=== PATIENT | male | born 1965 ===

== ENCOUNTER 2018-11-12 18:51 | Inpatient (IN) | payer OTHER ==
[~2018-11-12] VITALS: Ht 185.4 cm; Wt 87.0 kg
--- NOTE | 2018-11-12 17:15 | NUR ---
PATIENT ARRIVED TO ROOM 324 VIA CART BY EMS. PATIENT ORIENTED TO ROOM. CALL LIGHT WITHIN REACH. DR. MATUTE AWARE OF PATIENT'S ARRIVAL TO ROOM 324.
--- NOTE | 2018-11-12 19:30 | NUR ---
REPORT GIVEN TO REGINO JAIMES.
[2018-11-12 20:14] VITALS: BP 129/77; PULSE 69; TEMP 97.4
[2018-11-12] MEDS ORDERED: PROTONIX 40MG T40 MG PO (20:47)
[2018-11-12] MEDS ORDERED: SYNTHROID0.088 MG/T PO (20:48)
[2018-11-12] MEDS ORDERED: MASON NATURAL2000 IU PO (20:49)
[2018-11-12] MEDS ORDERED: LIPITOR 40MG TA40 MG PO (20:50)
[2018-11-12] MEDS ORDERED: ZANTAC 150MG T150 MG PO (20:51)
[2018-11-12] MEDS ORDERED: PERCOCET 325 MG1 TA2 PO (20:52)
[2018-11-12] MEDS ORDERED: COLACE 100100 MG/CAP PO (20:54)
[2018-11-12] MEDS ORDERED: MIRALAX PA17 GM/Dose PO (20:54)
--- NOTE | 2018-11-12 20:59 | NUR ---
PT IN BED WITH HOB ELEVATED TO 30 DEGREE ANGLE. DENIES PAIN OR DISCOMFORT AT THIS TIME. PT AWARE THAT HE WILL BE NPO AFTER MIDNIGHT. PT HAS IV FLUIDS RUNNING. NO NEEDS AT THIS TIME, CALL LIGHT WITHIN REACH.
--- NOTE | 2018-11-12 21:09 | NUR ---
Pt. laying in bed at this time. Pt. is A&OX3, assessment complete. Addmission assessment complete at this time. Pt. reports pain at a 3 on pain scale. Pt. denies further needs, call light within reach.
[2018-11-12 23:54] VITALS: BP 105/64; PULSE 64; TEMP 98.9
[2018-11-13] VITALS (17 sets, daily range): BP systolic 91–153; BP diastolic 55–81; PULSE 51–71; TEMP 97.4–99.2
--- NOTE | 2018-11-13 05:12 | NUR ---
UNEVENTFUL NIGHT, PT HAS GOTTEN SOME SLEEP THIS NIGHT. PT DENIES PAIN OR DISCOMFORT AND IS AWARE THAT HE IS NPO. PT HAS CALL LIGHT WITHIN REACH.
[2018-11-13 06:48] LABS: ALBUMIN 3.3 gm/dL (3.5-5.0); BILIRUBIN,TOTAL 3.2 mg/dL (0.0-1.0); CALCIUM 8.4 mg/dL (8.4-10.2); CREATININE, serum 1.24 mg/dL (0.66-1.25); POTASSIUM 4.1 mmol/L (3.4-5.0); TOTAL PROTEIN 6.4 gm/dL (6.4-8.2)
--- NOTE | 2018-11-13 07:41 | NUR ---
Patient is currnetly resting in bed. He remains NPO. Pain rated @ 3/10. RAC peripheral line remains patent, no redness, edema, or drainage noted. He voices no concerns at this time. Will continue to monitor.
--- NOTE | 2018-11-13 07:51 | NUR ---
ANESTHESIA PAGED AND AWARE OF CONSULT FOR ERCP AT 1200.
--- NOTE | 2018-11-13 08:00 | NUR ---
PATIENT RESTING IN BED WITH PRESENT AT THE BEDSIDE. PATIENT IS A&O. VSS. JAUNDICE NOTED. BOWEL SOUNDS ACTIVE ALL FOUR QUADRANTS. PATIENT IS NPO FOR ERCP. PATIENT DENIES N/V. SHALLOW BREATHING NOTED. ALL LUNG GATES CLEAR UPON AUSCULTATION. PATIENT DENIES SHORTNESS OF BREATH. IV FLUIDS INFUSING TO RIGHT AC IV. CALL LIGHT WITHIN REACH. PATIENT DENIES ANY NEEDS AT THIS TIME.
--- NOTE | 2018-11-13 09:10 | NUR ---
REPORT CALLED TO ENDO FOR ERCP.
--- NOTE | 2018-11-13 12:21 | NUR ---
PATIENT CONSENT SIGNED AND ON PATIENT CHART FOR ERCP. NS TO GRAVITY FLOW TUBING INFUSING TO IV.
--- NOTE | 2018-11-13 12:39 | NUR ---
Patient is in bed talking with family. RAC remains patent, no issues noted. Pain rated @3/10. He voices no complaints at this moment. Will continue to monitor.
--- NOTE | 2018-11-13 13:15 | NUR ---
PATIENT TAKEN TO PERIOP VIA BED FOR ERCP. WILL WAIT FOR ARRIVAL BACK TO ROOM 324.
--- NOTE | 2018-11-13 14:40 | NUR ---
PATIENT ARRIVED BACK TO ROOM 324 FROM PACU VIA BED. PATIENT SETTELED INTO ROOM. POST-OP VSS. PATIENT DROWSY BUT EASILY AROUSABLE. PATIENT DENIES ANY NEEDS AT THIS TIME.
--- NOTE | 2018-11-13 14:55 | NUR ---
SW met with patient to discuss discharge planning. Patient lives independently in with his Ozzy. His PCP is the [facility] and he obtains his medications DOD fernanda pavon. Patient does not have any anticipated discharge needs however social work will continue to follow.
--- NOTE | 2018-11-13 17:18 | NUR ---
CONSENT SIGNED AND ON PATIENT CHART FOR [facility] CROW TOMORROW (11/14/2018).
--- NOTE | 2018-11-13 17:25 | NUR ---
POST-OP VITAL SIGN STABLE AND COMPLETE. SCD'S TO BLE. PATIENT TOLERATING CLEAR LIQUIDS WITHOUT COMPLAINTS OF N/V. NO NEEDS AT THIS TIME.
--- NOTE | 2018-11-13 18:08 | NUR ---
Pt in bed, clear liquid tray in front of him. and family at bedside. Pt is A/O. Pain rated 3/10. He voices no complaints at this moment. Call light within reach. Report given to Brenna LACY.
--- NOTE | 2018-11-13 19:24 | NUR ---
REPORT GIVEN TO REGINO PARISI.
--- NOTE | 2018-11-13 22:00 | NUR ---
Patient requesting a shower. Right AC Iv site covered by BREASTFEEDING PEER COUNSELOR. Denies pain at this time. Steady gait in room.
--- NOTE | 2018-11-13 23:00 | NUR ---
Connected to IVF at 75cc/hr to right AC site, no redness or swelling noted. Will be NPO for surgery in AM, patient aware. No concerns voiced at this time.
[2018-11-14] VITALS (12 sets, daily range): BP systolic 107–127; BP diastolic 41–73; PULSE 55–95; TEMP 97.2–98.6
--- NOTE | 2018-11-14 08:00 | NUR ---
Patient in bed resting. Alert and oriented x 3. Shift assessment complete. IV infusing via pump to right forarm. Denies pain or further needs at this time.
--- NOTE | 2018-11-14 08:40 | NUR ---
Patient down to OR
--- NOTE | 2018-11-14 12:00 | NUR ---
Patient up to room from OR. Post op VSS. Lap x4 with bandaids. States pain 5/10, refuses pain medications at this time. On post of fluids. Denies further needs at this time.
--- NOTE | 2018-11-14 17:53 | NUR ---
Patient sitting up in chair eating dinner. Denies N/V. Denies pain at this time. Family in room. Denies further needs at this time. Will report off to websphere process server developer.
--- NOTE | 2018-11-14 19:50 | NUR ---
Patient hasn't walked since surgery or urinated. Supervised ambulation in hallway, will try to urinate on return from walk. Abdomen tender to palpate, hypoactive bowel sounds. Umbilicus bandaid leaking, changed at this time. Other 3 bandaids intact. SL to right AC without redness or swelling.
--- NOTE | 2018-11-14 20:14 | NUR ---
Able to urinate large amount after walk. No further concerns. Rates pain to abdomen 4/10.
--- NOTE | 2018-11-14 22:04 | NUR ---
AMBULATING IN HALLWAY WITH FAMILY. NO CONCERNS VOICED.
--- NOTE | 2018-11-14 23:30 | NUR ---
Medicated with Percocet 5/325mg 1 tab now for pain 01/01. Reports cramping and sharp, especially when he tries to burp.
[2018-11-15] VITALS: BP 109/64; PULSE 63; TEMP 97.7
[2018-11-15 04:00] VITALS: BP 106/61; PULSE 63; TEMP 97.7
--- NOTE | 2018-11-15 04:54 | NUR ---
Patient up ambulating in hallway, trying to pass gas. Reports pain 6/10 to abdomen. Medicated with Percocet 1 tab at this time with po Protonix.
--- NOTE | 2018-11-15 06:38 | NUR ---
Patient reports pain is better. Denies need for [place] at this time.
[2018-11-15 06:52] LABS: BASO % 0.3 % (0.0-2.0); EOS # 0.1 (0.0-0.7); EOS % 1.1 % (0-4.0); GRAN # 5.5 (1.4-6.5); GRAN % 70.2 % (42.2-75.2); HEMOGLOBIN 11.9 g/dl (13.5-18.0); LYMPH # 1.3 (1.2-3.4); LYMPH % 16.1 % (20.0-51.0); MEAN CELL VOLUME 82 fl (80.0-100.0); MEAN CORPUSCULAR HEMOGLOBIN 28 pg (27.0-31.0); MEAN CORPUSCULAR HGB CONC 34 g/dl (33.0-37.0); MEAN PLATELET VOLUME 9.3 fl (7.4-10.4); MONO # 0.9 (0.1-0.6); MONO % 11.5 % (1.7-9.3); PLATELET COUNT 173 K/mm3 (130-400); RED BLOOD COUNT 4.25 M/mm3 (4.20-5.60); REDCELL DISTRIBUTION WIDTH-CV 13.6 % (11.5-14.5)
[2018-11-15 07:00] LABS: HEMATOCRIT 34.9 % (42.0-52.0)
[2018-11-15 07:08] LABS: ALBUMIN 3.1 gm/dL (3.5-5.0); BILIRUBIN,TOTAL 1.5 mg/dL (0.0-1.0); CALCIUM 8.2 mg/dL (8.4-10.2); CREATININE, serum 1.25 mg/dL (0.66-1.25); TOTAL PROTEIN 5.9 gm/dL (6.4-8.2)
[2018-11-15 08:00] VITALS: BP 104/54; PULSE 59; TEMP 97.5
[2018-11-15 12:30] VITALS: BP 102/58; PULSE 63; TEMP 97.6
--- NOTE | 2018-11-15 13:30 | NUR ---
Ambulated independently in halls. Incisional pain improved with prn medications. Complained of gas pains. Took diet well. Dr. Quinn saw patient. Prescription given. Dismissed to home with spouse.
== END 2018-11-15 13:30 | disposition home or self-care (01) | DRG 419 ==
LOC: SURG 18:51
PROVIDERS: Surgery; ADMIT Surgery
PROC: 0FJB8ZZ Inspection of Hepatobiliary Duct, Via Natural or Artificial Opening Endoscopic (ICD-10-PCS; 2018-11-13)
PROC: 0FC98ZZ Extirpation of Matter from Common Bile Duct, Via Natural or Artificial Opening Endoscopic (ICD-10-PCS; 2018-11-13)
PROC: BF111ZZ Fluoroscopy of Biliary and Pancreatic Ducts using Low Osmolar Contrast (ICD-10-PCS; 2018-11-13)
PROC: 0FT44ZZ Resection of Gallbladder, Percutaneous Endoscopic Approach (ICD-10-PCS; principal; 2018-11-14 09:00)
DX: K80.62 Calculus of gallbladder and bile duct with acute cholecystitis without obstruction (principal); F43.10 Post-traumatic stress disorder, unspecified; K21.9 Gastro-esophageal reflux disease without esophagitis
CPT/HCPCS: C1769; C9113; J0690; J1100; J1885; J1956; J2405; J2704; J2710; J3010; J7120